=== PATIENT | male | born 1985 | race Caucasian/White ===

== ENCOUNTER 2016-09-27 22:44 | Emergency (ER) | payer MEDICAID, OTHER ==
[~2016-09-27] VITALS: Ht 172.7 cm; Wt 61.7 kg
[~2016-09-27 22:44] MED LIST: INSU100V27; INSU100V7 SQ
[2016-09-27] MEDS ORDERED: ONDANSETRON HCL/PF 4 MG/2 ML VIAL IVP ONE (23:00)
[2016-09-27] MEDS ORDERED: MORPHINE SULFATE INJ 2 MG/ML DISP.SYRIN IV ONE (23:00)
[2016-09-27] MEDS ORDERED: IV NS 0.9% 500 ML BAG IV ONE (23:00)
[2016-09-27] MEDS ORDERED: ONDANSETRON HCL/PF 4 MG/2 ML VIAL ONE (23:23)
[2016-09-27] MEDS ORDERED: MORPHINE SULFATE INJ 4 MG/ML DISP.SYRIN ONE (23:23)
[2016-09-27] MEDS ORDERED: IV SET PRIMARY 1 EA INFUS.SET MC ONE (23:24)
[2016-09-27] MEDS ORDERED: IV NS 0.9% 500 ML IV ONE (23:24)
[2016-09-27 23:30] LABS: DIFF TOTAL % 100 %; EOSINOPHILS % (AUTO) 0.2 % (0.0-6.0); HEMATOCRIT 49 % (39-51); HEMOGLOBIN 16.8 g/dL (13.5-17.5); LYMPHOCYTES # (AUTO) 1.8 /CMM (0.8-4.8); LYMPHOCYTES % (AUTO) 24.3 % (20.0-44.0); MEAN CORPUSCULAR HEMOGLOBIN 31 PG (26.0-33.0); MEAN CORPUSCULAR HGB CONC 34 g/dl (31.0-36.0); MEAN CORPUSCULAR VOLUME 92 fL (80-96); MONOCYTES # (AUTO) 0.4 /CMM (0.1-1.30); MONOCYTES % (AUTO) 5.5 % (2.0-12.0); NEUTROPHILS # (AUTO) 5.1 /CMM (1.8-8.9); PLATELET COUNT (AUTO) 215 /CMM (150-450); RED BLOOD CELL COUNT(AUTO) 5.38 MIL/uL (4.5-6.0); WHITE BLOOD COUNT (AUTO) 7.3 K/uL (4.3-11.0)
[2016-09-27 23:38] LABS: ADD UA MICROSCOPIC YES; KETONES,URINE TRACE (NEGATIVE); LEUKOCYTE ESTERASE ,URINE NEGATIVE (NEGATIVE); PH,URINE 6.5 (5.0-8.0)
[2016-09-27 23:44] LABS: CALCIUM, SERUM 9.5 mg/dL (8.5-10.1); CREATININE 0.8 mg/dL (0.6-1.3)
[2016-09-27 23:45] LABS: ADD URINE CULTURE NO; INR 1.02 (0.87-1.13); RBC,URINE 0-2 /HPF (0-2); WBC,URINE 0-2 /HPF (0-3)
[2016-09-27 23:50] LABS: ALBUMIN 4.1 g/dL (3.4-5.0); BILIRUBIN,DIRECT 0.1 mg/dL (0.0-0.2); BILIRUBIN,TOTAL 0.5 mg/dL (0.2-1.0); INDIRECT BILIRUBIN 0.4 mg/dL (0.0-1.1); TOTAL PROTEIN, SERUM 7.4 g/dL (6.4-8.2)
[2016-09-28 00:20] VITALS: BP 118/90
== END 2016-09-28 00:21 | disposition home or self-care (01) ==
LOC: ER 22:57
DX: R10.84 Generalized abdominal pain (principal); G89.29 Other chronic pain; E11.9 Type 2 diabetes mellitus without complications; Z90.89 Acquired absence of other organs
CPT/HCPCS: 36415; 80048-TC; 80076-TC; 81000-TC; 83690-TC; 85025-TC; 85730-TC; A4606; J2270; J2405; J7040; Z7610

== ENCOUNTER 2016-12-04 20:51 | Emergency (ER) | payer MEDICAID ==
[~2016-12-04] VITALS: Ht 172.7 cm; Wt 63.5 kg
[2016-12-04 22:16] VITALS: BP 128/81
--- NOTE | 2016-12-04 22:38 | NUR ---
CALLED FOR ROOM ASSIGNMENT AND INFORMED BY ADMITTING PT LEFT AND STATED "AM GONNA CALL 911".
== END 2016-12-04 22:40 | disposition left against medical advice (07) ==
LOC: ER 20:56
DX: Z53.21 Procedure and treatment not carried out due to patient leaving prior to being seen by health care provider (principal)
CPT/HCPCS: A4606; Z7610

== ENCOUNTER 2017-01-31 21:26 | Emergency (ER) | payer MEDICAID ==
[~2017-01-31] VITALS: Ht 172.7 cm; Wt 67.1 kg
--- NOTE | 2017-01-31 22:00 | NUR ---
PT A/OX4 BREATHING EFFORTLESSLY ON ROOM AIR, PT STATES HE HAS BEEN HVAING ABD PAIN WITH NAUSEA BUT DENIES VOMITNG, PT STATES HE JUST HAD A BIOPSY DONE ON HIS STOMACH AND RAN OUT FO HIS PAIN MEDICATION, PT STATES HE CALLED HIS PMD BUT HE IS [place] OF TOWN, IV PLACED LABS DRAWN, MD MADE AWARE WILL CONTINUE TO MONITOR.
[2017-01-31 22:12] LABS: BASOPHILS % (AUTO) 0.2 % (0.0-2.0); EOSINOPHILS % (AUTO) 0.3 % (0.0-6.0); HEMATOCRIT 52 % (39-51); HEMOGLOBIN 18.1 g/dL (13.5-17.5); LYMPHOCYTES # (AUTO) 2.2 /CMM (0.8-4.8); LYMPHOCYTES % (AUTO) 23.3 % (20.0-44.0); MEAN CORPUSCULAR HEMOGLOBIN 33 PG (26.0-33.0); MEAN CORPUSCULAR HGB CONC 35 g/dl (31.0-36.0); MEAN CORPUSCULAR VOLUME 94 fL (80-96); MONOCYTES # (AUTO) 0.4 /CMM (0.1-1.30); MONOCYTES % (AUTO) 4.4 % (2.0-12.0); NEUTROPHILS # (AUTO) 6.8 /CMM (1.8-8.9); NEUTROPHILS % (AUTO) 71.8 % (43.0-81.0); PLATELET COUNT (AUTO) 237 /CMM (150-450); RDW COEFFICIENT OF VARIATION 14.2 (11.5-15.0); WHITE BLOOD COUNT (AUTO) 9.5 K/uL (4.3-11.0)
[2017-01-31] MEDS ORDERED: ONDANSETRON HCL/PF 4 MG/2 ML VIAL ONE (22:24)
[2017-01-31] MEDS ORDERED: IV SET PRIMARY 1 EA INFUS.SET MC ONE (22:24)
[2017-01-31] MEDS ORDERED: IV NS 0.9% 500 ML IV ONE (22:24)
[2017-01-31 22:29] LABS: ALBUMIN 4.3 g/dL (3.4-5.0); BILIRUBIN,TOTAL 0.4 mg/dL (0.2-1.0); CALCIUM, SERUM 9.2 mg/dL (8.5-10.1); CREATININE 0.9 mg/dL (0.6-1.3); POTASSIUM 3.8 mmol/L (3.5-5.1); TOTAL PROTEIN, SERUM 8.2 g/dL (6.4-8.2)
[2017-01-31] MEDS ORDERED: ONDANSETRON HCL/PF 4 MG/2 ML VIAL IVP ONE (22:30)
[2017-01-31] MEDS ORDERED: IV NS 0.9% 500 ML BAG IV ONE (22:30)
[2017-01-31 23:00] VITALS: BP 122/84
--- NOTE | 2017-01-31 23:00 | NUR ---
Patient discharged to home in stable condition. Written and verbal after care instructions given. Patient verbalizes understanding of instruction.IV removed. Catheter intact and site benign. Pressure and 4x4 applied to site. No bleeding noted.
== END 2017-01-31 23:01 | disposition home or self-care (01) ==
LOC: ER 21:32
DX: R10.9 Unspecified abdominal pain (principal); G89.29 Other chronic pain; E11.9 Type 2 diabetes mellitus without complications; Z79.4 Long term (current) use of insulin; Z90.89 Acquired absence of other organs
CPT/HCPCS: 36415; 80053-TC; 82962-TC; 83690-TC; 85025-TC; A4606; J2405; J7040; Z7610

== ENCOUNTER 2017-06-28 00:01 | Emergency (ER) | payer MEDICAID ==
[~2017-06-28] VITALS: Ht 172.7 cm; Wt 59.9 kg
[2017-06-28 00:42] VITALS: BP 110/66
--- NOTE | 2017-06-28 01:21 | NUR ---
called pt in wr, no response
--- NOTE | 2017-06-28 01:55 | NUR ---
called pt in wr, no response
--- NOTE | 2017-06-28 02:21 | NUR ---
called pt in wr, no response
--- NOTE | 2017-06-28 02:47 | NUR ---
called pt in wr, no response
== END 2017-06-28 02:48 | disposition home or self-care (01) ==
LOC: ER 00:06
DX: Z53.21 Procedure and treatment not carried out due to patient leaving prior to being seen by health care provider (principal)
CPT/HCPCS: A4606; Z7610

== ENCOUNTER 2017-09-09 02:48 | Emergency (ER) | payer MEDICAID ==
[~2017-09-09] VITALS: Ht 172.7 cm; Wt 62.6 kg
[2017-09-09 03:15] VITALS: BP 107/68
== END 2017-09-09 04:54 | disposition home or self-care (01) ==
LOC: ER 02:52
DX: M79.671 Pain in right foot (principal); G89.29 Other chronic pain; F10.10 Alcohol abuse, uncomplicated; E10.9 Type 1 diabetes mellitus without complications; Z79.4 Long term (current) use of insulin; Z90.89 Acquired absence of other organs
CPT/HCPCS: 73630; 99284; A4606; Z7610

== ENCOUNTER 2018-08-28 01:22 | Emergency (ER) | payer MEDICAID ==
[~2018-08-28] VITALS: Ht 172.7 cm; Wt 63.5 kg
--- NOTE | 2018-08-28 01:30 | NUR ---
PT PRESENTED TO THE ER WITH A C/O ABD PAIN THAT RADIATES TO LT UPPER RIBS/ CHEST (BELOW THE LEFT BREAST). PT DENIES SOB AND NAUSEA. PT IS ON THE MONITOR AND CONTINUOUS PULSE OX.
[2018-08-28 01:58] LABS: BASOPHILS # (AUTO) 0.1 /CMM (0.0-0.2); BASOPHILS % (AUTO) 0.7 % (0.0-2.0); EOSINOPHILS % (AUTO) 1.4 % (0.0-6.0); HEMATOCRIT 48 % (39-51); HEMOGLOBIN 16.6 g/dL (13.5-17.5); LYMPHOCYTES # (AUTO) 2.6 /CMM (0.8-4.8); LYMPHOCYTES % (AUTO) 34.9 % (20.0-44.0); MEAN CORPUSCULAR HGB CONC 35 g/dl (31.0-36.0); MEAN CORPUSCULAR VOLUME 90 fL (80-96); MONOCYTES # (AUTO) 0.4 /CMM (0.1-1.30); MONOCYTES % (AUTO) 5.9 % (2.0-12.0); NEUTROPHILS # (AUTO) 4.3 /CMM (1.8-8.9); NEUTROPHILS % (AUTO) 57.1 % (43.0-81.0); PLATELET COUNT (AUTO) 200 /CMM (150-450); RED BLOOD CELL COUNT(AUTO) 5.33 MIL/uL (4.5-6.0); WHITE BLOOD COUNT (AUTO) 7.5 K/uL (4.3-11.0)
[2018-08-28 02:05] LABS: CALCIUM, SERUM 9.2 mg/dL (8.5-10.1); CARBON DIOXIDE 31 mmol/L (21-32); CHLORIDE 101 mmol/L (98-107); CREATININE 0.8 mg/dL (0.6-1.3); GLUCOSE 212 mg/dL (74-106); SODIUM SERUM 139 mmol/L (136-145); UREA NITROGEN, BLOOD 15 mg/dL (7-18)
[2018-08-28] MEDS ORDERED: IOHEXOL-300 100 ML VIAL IV ONE (02:10)
[2018-08-28] MEDS ORDERED: CT SWABBABLE VALVE TRANS SET 1 EA INFUS.SET MC ONE (02:10)
[2018-08-28] MEDS ORDERED: IV NS 0.9% 250 ML IV ONE (02:10)
[2018-08-28] MEDS ORDERED: HYDROMORPHONE INJ 2 MG/ML DISP.SYRIN ONE (02:11)
[2018-08-28] MEDS ORDERED: ONDANSETRON HCL/PF 4 MG/2 ML VIAL ONE (02:11)
[2018-08-28 02:12] LABS: ALANINE AMINOTRANSFERASE 15 U/L (12-78); ALBUMIN 3.6 g/dL (3.4-5.0); ALKALINE PHOSPHATASE 120 U/L (46-116); ASPARTATE AMINOTRANSFERASE 9 U/L (15-37); BILIRUBIN,TOTAL 0.2 mg/dL (0.2-1.0); LIPASE 41 U/L (73-393)
--- NOTE | 2018-08-28 02:20 | NUR ---
PT LEFT FOR CT.
[2018-08-28] MEDS ORDERED: HYDROMORPHONE 1 MG/1 ML DISP.SYRIN IV ONE (02:30)
[2018-08-28] MEDS ORDERED: ONDANSETRON HCL/PF - ER 4 MG/2 ML VIAL IV ONE (02:30)
--- NOTE | 2018-08-28 02:36 | NUR ---
PT RETURNED FROM CT.
--- NOTE | 2018-08-28 03:09 | NUR ---
PT AMBUALTED TO THE BATHROOM WITH A STEADY GAIT. URINE SAMPLE OBTAINED.
--- NOTE | 2018-08-28 03:15 | NUR ---
Patient does not wish to proceed with medical care recommended by Dr. HERNANDEZ. Patient given information related to possible complications, up to and including , which could occur as a result of leaving the hospital at this time. Patient verbalizes understanding of risks involved due to leaving against medical advice. Patient has signed AMA form.
--- NOTE | 2018-08-28 03:27 | NUR ---
Patient LEFT AMA in stable condition. PT REC'D ACI AND A COPY OF ALL LABS AND IMAGING FINDINGS.
[2018-08-28 03:38] VITALS: BP 129/77
== END 2018-08-28 03:39 | disposition home or self-care (01) ==
LOC: ER 01:24
DX: R07.89 Other chest pain (principal); G89.29 Other chronic pain; R10.9 Unspecified abdominal pain; E10.9 Type 1 diabetes mellitus without complications; F17.200 Nicotine dependence, unspecified, uncomplicated; Z90.89 Acquired absence of other organs; Z71.6 Tobacco abuse counseling; Z79.4 Long term (current) use of insulin
CPT/HCPCS: 36415; 71045-TC; 80048-TC; 80076-TC; 83690-TC; 84484-TC; 85025-TC; 85730-TC; J1170; J2405; J7050; Q9967